=== PATIENT | female | born 1965 | race Caucasian/White ===

== ENCOUNTER 2017-08-31 08:49 | Day surgery (SDC) | payer BC ==
[~2017-08-31 08:49] MED LIST: Lactated Ringers 1,000 ML IV SCH; Sodium Chloride 0.9% 10 ML Syringe FLUSH PRN; ceFAZolin 1 GM in Sodium Chloride 0.9% 50 ML IV ONE
[2017-08-31] MEDS ORDERED: ceFAZolin 1 GM Vial IV ONE ×2 (09:30→11:00)
[2017-08-31] MEDS ORDERED: ceFAZolin 1 GM in Sodium Chloride 0.9% 50 ML IV ONE (09:30)
[2017-08-31] MEDS ORDERED: Midazolam 1 MG/ML 2 ML SDV IV ONE (11:00)
[2017-08-31] MEDS ORDERED: HYDROmorphone 2 MG/ML SDV IV ONE (11:00)
[2017-08-31] MEDS ORDERED: Ketorolac 30 MG/ML SDV IVPUSH ONE (11:00)
[2017-08-31] MEDS ORDERED: Dexamethasone 4 MG/ML 5 ML MDV IVPUSH ONE (11:00)
[2017-08-31] MEDS ORDERED: Propofol 200 MG/20 ML SDV IV ONE (11:00)
[2017-08-31] MEDS ORDERED: fentaNYL 100 MCG/2 ML SDV IV ONE (11:00)
[2017-08-31] MEDS ORDERED: Ondansetron 4 MG/2 ML SDV IVPUSH ONE (11:00)
[2017-08-31] MEDS ORDERED: Lactated Ringers 1,000 ML IV ONE (11:00)
--- NOTE | 2017-08-31 11:11 | PCM.HP ---
H&P History of Present Illness - General Date of Service: 08/31/17 Admit Problem/Dx: Admission Diagnosis/Problem Admission Diagnosis/Problem [place] node Source of Information: Patient, Old Records History Limitations: Reports: No Limitations - History of Present Illness Initial Comments - Free Text/Narative: Patient recently diagnosed with right breast cancer. Here today for right axillary sentinal node bx and A-port placement for chemo - Related Data Allergies/Adverse Reactions: Allergies Allergy/AdvReac Type Severity Reaction Status Date / Time Penicillins Allergy Hives Verified 08/31/17 09:45 Sulfa (Sulfonamide Allergy Hives Verified 08/31/17 09:45 Antibiotics) Home Medications: Home Meds Levothyroxine [Sythroid] 100 mcg PO DAILY 08/28/17 [History] Multivitamin [Multivitamins] 1 each PO DAILY 08/31/17 [History] Past Medical History HEENT History: Reports: Impaired Vision Cardiovascular History: Reports: None Respiratory History: Reports: None Gastrointestinal History: Reports: None Genitourinary History: Reports: None [employer] History: Reports: Musculoskeletal History: Reports: None Neurological History: Reports: None Psychiatric History: Reports: None Endocrine/Metabolic History: Reports: Hypothyroidism, Obesity/BMI 30+ Hematologic History: Reports: None Immunologic History: Reports: None Oncologic (Cancer) History: Reports: Breast Dermatologic History: Reports: None - Past Surgical History Head Surgeries/Procedures: Reports: None HEENT Surgical History: Reports: Oral Surgery Cardiovascular Surgical History: Reports: None Respiratory Surgical History: Reports: None GI Surgical History: Reports: None Female Surgical History: Reports: None Endocrine Surgical History: Reports: None Neurological Surgical History: Reports: None Musculoskeletal Surgical History: Reports: None Oncologic Surgical History: Reports: None Social & Family History - Tobacco Use Smoking Status *Q: Never Smoker - Caffeine Use Caffeine Use: Reports: Soda - Recreational Drug Use Recreational Drug Use: No H&P Review of Systems - Review of Systems: Review Of Systems: See Below General: Reports: No Symptoms HEENT: Reports: No Symptoms Pulmonary: Reports: No Symptoms Cardiovascular: Reports: No Symptoms Gastrointestinal: Reports: No Symptoms Genitourinary: Reports: No Symptoms Exam - Exam Exam: See Below - Vital Signs Vital Signs: Last Vital Signs Temp 97.9 F 08/31/17 09:42 Pulse 65 08/31/17 09:42 Resp 16 08/31/17 09:42 BP 123/80 08/31/17 09:42 Pulse Ox 99 08/31/17 09:42 Weight: 87.543 kg - Exam General: Alert, Oriented Lungs: Clear to Auscultation, Normal Respiratory Effort Cardiovascular: Regular Rate, Regular Rhythm *Q Meaningful Use (ADM) - VTE *Q VTE Criteria *Q: - Stroke *Q Stroke Criteria *Q: - AMI *Q AMI Criteria *Q: Problem List Initiated/Reviewed/Updated: Yes Orders Last 24hrs: Active Orders 24 hr Category Date Time Status Patient Status [ADT] Routine ADT 08/31/17 08:45 Ordered Patient to Empty Bladder [RC] ASDIRECTED Care 08/31/17 08:45 Active Verify Patient Consent Obtain [RC] ASDIRECTED Care 08/31/17 08:45 Active Nothing Per Oral Diet [DIET] Diet 08/31/17 Breakfast Ordered Tumor Local Limited [NM] Routine Exams 08/31/17 08:45 Taken Lactated Ringers [Ringers, Lactated] 1,000 ml Med 08/31/17 08:45 Active IV ASDIRECTED Sodium Chloride 0.9% [Saline Flush] Med 08/31/17 08:45 Active 10 ml FLUSH ASDIRECTED PRN Peripheral IV Insertion Adult [OM.PC] Routine Oth 08/31/17 08:45 Ordered Sequential Compression Device [OM.PC] Routine Oth 08/31/17 08:45 Ordered Medication Orders Lactated Ringer's (Ringers, Lactated) 1,000 mls @ 125 mls/hr IV ASDIRECTED ALESHIA Last Admin: 08/31/17 09:46 Dose: 125 mls/hr Sodium Chloride (Saline Flush) 10 ml FLUSH ASDIRECTED PRN PRN Reason: Keep Vein Open Assessment/Plan Comment:: Right Breast Cancer Ok to proceed with right sentinal node bx and A-port placement. Risks and complications including bleeding, infection and pneumothorax reviewed, consent obtained
[2017-08-31] MEDS ORDERED: Isosulfan Blue 5 ML SDV SUBCUT ONE (11:25)
[2017-08-31] MEDS ORDERED: HYDROmorphone 2 MG/ML SDV IV PRN (11:35)
[2017-08-31] MEDS ORDERED: fentaNYL 100 MCG/2 ML SDV IVPUSH PRN (11:35)
[2017-08-31] MEDS ORDERED: Promethazine 25 MG/ML SDV IM PRN (11:35)
[2017-08-31] MEDS ORDERED: Ondansetron 4 MG/2 ML SDV IVPUSH PRN (11:35)
[2017-08-31] MEDS ORDERED: Albuterol 0.083% 2.5 MG/3 ML Neb Soln NEB PRN (11:35)
[2017-08-31] MEDS ORDERED: HYDROmorphone 2 MG/ML SDV IVPUSH PRN (11:35)
[2017-08-31] MEDS ORDERED: Naloxone 0.4 MG/ML SDV IVPUSH PRN (11:35)
[2017-08-31] MEDS ORDERED: Lactated Ringers 1,000 ML IV SCH (11:45)
[2017-08-31] MEDS ORDERED: Lidocaine 1% with EPINEPHrine 1:100,000 20 ML MDV INFILT ONE (12:31)
[2017-08-31] MEDS ORDERED: Bupivacaine 0.25% 30 ML SDV INFILT ONE (12:31)
[2017-08-31] MEDS ORDERED: Heparin Sodium 10 Units/ML 5 ML Syringe FLUSH ONE (12:58)
--- NOTE | 2017-08-31 13:50 | PCM.OPNOTE ---
- General Post-Op/Procedure Note Date of Surgery/Procedure: 08/31/17 Operative Procedure(s): Right Axillary [place] Node bx. A-port placement left subclavian vein Pre Op Diagnosis: R Breast Ca Post-Op Diagnosis: Same Anesthesia Technique: General LMA Primary Surgeon: Stanley Samuels Anesthesia Provider: Dino Blair Pathology: 3 nodes EBL in mLs: 20 Complications: None Condition: Good
[2017-08-31] MEDS ORDERED: Scopolamine 1.5 MG Transdermal Patch TRDERM ONE (15:48)
--- NOTE | 2017-09-01 09:32 | OR ---
DATE OF OPERATION: 08/31/2017 SURGEON: Stanley Samuels MD PREOPERATIVE DIAGNOSIS: Right breast cancer. POSTOPERATIVE DIAGNOSIS: Right breast cancer. PROCEDURE: 1. Right axillary sentinel node biopsy. 2. Injection of sulfur colloid technetium-99m. 3. Injection of Lymphazurin blue. 4. A-Port placement left subclavian vein. ANESTHESIA: General laryngeal mask airway. DESCRIPTION OF PROCEDURE: The patient's right breast was injected with technetium-99m sulfur colloid upon arrival. She was then brought to the operating room after the surgical site had been verified by myself and the patient. A time-out was performed. General endotracheal anesthesia was administered, and 3 mL of Lymphazurin blue was injected in the subareolar breast tissue and massaged. The right upper arm, chest, and axillary region were prepped with ChloraPrep and draped sterilely. Neoprobe was used to identify an active area in the axilla. An incision was made over this area and extended through the subcutaneous tissue. Immediately in the level-I area was an active palpable node. This was removed with a 10 second count of 31,141. Further inspection revealed a deeper node in the level-II nodes with a larger palpable node. This was also removed with a 10 second count of 94,347. Lastly, another level-II node was found with activity with a 10 second count of 16,875. These are all 1 to 1.5 cm in diameter and are likely pathologic. The rest of the axilla was normal to palpation. The wound was assured to be hemostatic and closed with #3-0 Vicryl subcutaneous sutures and a running #4-0 Vicryl subcuticular suture. Benzoin and Steri-Strips were placed and a sterile dressing applied. The patient tolerated the procedure well. Blood loss for this portion was approximately 10 mL. The patient's left chest, neck, and shoulder region were prepped with ChloraPrep and draped sterilely. Local anesthetic was administered. The left subclavian vein was cannulated on the second attempt and a J-wire passed. Fluoroscopy confirmed this to be in the right atrium. The cutdown was then done for the port in the left upper chest and a pocket made on the pectoral fascia. The J- wire was brought through this incision and the dilator and Cook introducer placed over the wire removing the dilator and wire. The flushed catheter was then inserted through the Cook introducer and Cook introducer removed. Placement of the tip of the catheter was in the superior vena cava. The catheter was cut at 24 cm and connected to the previously flushed port. This was secured to the pectoral fascia. The catheter aspirated with some slow return, but flushed easily. 5 mL of heparin lock was also flushed at the end. The subcutaneous tissues were reapproximated with #3-0 Vicryl and skin closed with a running #4-0 Vicryl subcuticular suture. Benzoin and Steri-Strips were placed and sterile dressing applied. The patient tolerated the procedure well and returned to recovery in stable condition. Estimated blood loss for this portion was also 10 mL. Chest x-ray will be obtained in recovery room. /[id number] NELLY/DANITZA
--- NOTE | 2017-09-01 14:51 | CR ---
INDICATION: A-Port placement. C-ARM FLUOROSCOPY IN O.R. LESS THAN ONE HOUR: 0.6 minutes C-arm fluoroscopy time in O.R. was utilized in placing an A-Port and revealed the single spot image to show the tip of the A-Port to be in the area of the right atrium. Retraction of a few centimeters probably would be helpful for better positioning. SHARIF
--- NOTE | 2017-09-01 14:52 | CR ---
INDICATION: A-Port placement. CHEST: A single upright view of the chest 08/31/2017, revealed an A-Port in place. No comparison studies were available. The tip of the port extends to a level just below the ghulam and just above the right atrium - satisfactory position is noted from the left subclavian area. Overlying snaps are noted. No complicating process was noted post port placement - no active infiltrate, effusion, or pneumothorax was noted. IMPRESSION: Satisfactory appearance post A-Port placement. Report was given by phone to Dr. Samuels at 1525 hours, 08/31/2017. SHARIF
--- NOTE | 2017-09-01 14:55 | NM ---
INDICATION: Right breast mass. NUCLEAR MEDICINE TUMOR LOCALIZATION, LIMITED: 1.1 mCi technetium-99m Sulfur colloid was injected in 1.4 mL volume at 0934 hours in one injection site by Dr. Stanley Samuels. SHARIF
== END 2017-08-31 16:15 | disposition home or self-care (01) ==
LOC: FB.SDS 08:49 → EDBD 12:15 → FB.SDS 16:15
PROVIDERS: ATTEND Surgery
DX: C50.911 Malignant neoplasm of unspecified site of right female breast (principal); Z45.2 Encounter for adjustment and management of vascular access device; E03.9 Hypothyroidism, unspecified; E66.9 Obesity, unspecified; Z68.30 Body mass index [BMI] 30.0-30.9, adult; Z88.0 Allergy status to penicillin; Z88.2 Allergy status to sulfonamides; Z79.899 Other long term (current) drug therapy
CPT/HCPCS: 36561; 38525; 38792; 76000; 78800; 88307; 88342; A9270; J0690; J1100; J1170; J1642; J1885; J2250; J2405; J2704; J3010; J3490; J7120; Q9968

== ENCOUNTER 2018-01-25 07:03 | Day surgery (SDC) | payer BC ==
[2018-01-25] MEDS ORDERED: Lactated Ringers 1,000 ML IV SCH (07:45)
[2018-01-25] MEDS ORDERED: Ondansetron 4 MG/2 ML SDV IVPUSH ONE ×2 (08:46→09:45)
[2018-01-25] MEDS ORDERED: Scopolamine 1.5 MG Transdermal Patch TOP ONE (08:49)
--- NOTE | 2018-01-25 09:43 | PCM.HPR ---
H & P Addendum review - H & P Addendum Review Date of Original H & P: 01/15/18 Date Reviewed: 01/25/18 Time Reviewed: 08:30 Patient was Examined: No Changes
[2018-01-25] MEDS ORDERED: fentaNYL 100 MCG/2 ML SDV IV ONE (09:45)
[2018-01-25] MEDS ORDERED: Lactated Ringers 1,000 ML IV ONE (09:45)
[2018-01-25] MEDS ORDERED: Midazolam 1 MG/ML 2 ML SDV IV ONE (09:45)
[2018-01-25] MEDS ORDERED: Ketorolac 30 MG/ML SDV IVPUSH ONE (09:45)
[2018-01-25] MEDS ORDERED: Propofol 200 MG/20 ML SDV IV ONE (09:45)
--- NOTE | 2018-01-25 10:54 | PCM.OPNOTE ---
- General Post-Op/Procedure Note Date of Surgery/Procedure: 01/25/18 Operative Procedure(s): R Needle Loc Breast Lumpectomy Pre Op Diagnosis: R Breast ca Post-Op Diagnosis: Same Anesthesia Technique: General LMA Primary Surgeon: Stanley HOOKER in mLs: 20 Complications: None Condition: Good
--- NOTE | 2018-01-25 12:41 | OR ---
DATE OF OPERATION: 01/25/2018 SURGEON: Stanley Samuels MD PREOPERATIVE DIAGNOSIS: Right breast cancer. POSTOPERATIVE DIAGNOSIS: Right breast cancer. PROCEDURE: Right needle localization breast lumpectomy. ANESTHESIA: General LMA. DESCRIPTION OF PROCEDURE: The patient was brought to the mammogram suite, where needle localization was performed. She was then brought to the operating room, where general anesthesia was administered with a laryngeal mask airway. The right breast and needle were prepped with ChloraPrep and draped sterilely. A radial incision was made in the right lower outer quadrant. Skin flaps were raised circumferentially. Electrocautery was used to dissect medial initially, where I encountered some dense whitish tissue that may have been residual or old breast cancer. Since I was unable to feel the mass any longer, I elected to go more medially almost to the midline until I encountered the needle. I then continued around all edges until I was below the level of the needle and wire. The needle was then cut, and the specimen delivered partially onto the skin and dissection continued posteriorly behind the needle. I did encounter pectoral muscle fibers posteriorly. Once the specimen was completely removed, it was orientated with sutures. Specimen radiograph was reviewed with Dr. Baird and it appears that the tumor has been removed with clear margins. The surgical site was inspected and was hemostatic. There was no evidence of remaining malignancy at any of the margins. The wound was closed with #3-0 Vicryl subcutaneous sutures and interrupted 4-0 Prolene skin sutures. A sterile bulky pressure dressing was applied. The patient tolerated the procedure well. Estimated blood loss was less than 20 mL. She returned to Postanesthesia in a stable condition. /[id number] NELLY/DANITZA
--- NOTE | 2018-01-25 13:48 | MY ---
INDICATION: Needle localization specimen. DIGITAL MAMMOGRAPHY SURGICAL SPECIMEN, RADIOGRAPHY OF THE BREAST: A single image of the right breast excisional specimen revealed what appears to be the nodular density with biopsy clip posteriorly located. Multiple tiny calcifications anteriorly are noted, which were present in the pre-biopsy images anterior to the nodular mass and slightly lateral to the nodular mass. IMPRESSION: Satisfactory needle localization with excision of right breast Ca, post biopsy. Results were discussed with Dr. Stanley Samuels immediately after the examination was available on PACS. SHARIF
--- NOTE | 2018-01-25 14:24 | MY ---
INDICATION: Followup right breast biopsy for excisional surgery of right breast cancer, lower inner quadrant. RIGHT DIGITAL MAMMOGRAPHY GUIDANCE WITH NEEDLE WIRE LOCALIZATION: After describing the procedure and complications to the patient, needle localization was obtained of a lower inner quadrant mass, which has decreased in size significantly from approximately 27 mm to 17 mm in transverse diameter and is accompanied by a coil biopsy marker, which lies behind it. After aseptic cleansing of the breast and local anesthetic, a [place] Mammalok type needle was introduced medially and extended just beyond the lateral aspect of the cancer and several millimeters behind the coil biopsy marker - approximately 4 mm behind the lesion itself. No immediate complications were noted. The patient was sent to surgery in good condition. The examination - needle localization was discussed with Dr. Samuels immediately after it was completed. IMPRESSION: Satisfactory needle localization. [facility]
== END 2018-01-25 13:00 | disposition home or self-care (01) ==
LOC: FB.SDS 07:03
PROVIDERS: ATTEND Surgery
DX: C50.511 Malignant neoplasm of lower-outer quadrant of right female breast (principal); E03.9 Hypothyroidism, unspecified; Z17.0 Estrogen receptor positive status [ER+]
CPT/HCPCS: 19281; 19301; 76098; 88307; 88360; A9270; J1885; J2250; J2405; J2704; J3010; J7120